=== PATIENT | female | born 1980 | race Caucasian/White ===

== ENCOUNTER 2019-03-08 06:57 | Observation (INO) | payer OTHER ==
[~2019-03-08] VITALS: Ht 172.7 cm; Wt 82.1 kg
[~2019-03-08 06:57] MED LIST: CRANBERRY300 MG PO; MULTI VITAMIN1 EACH PO
[2019-03-08 07:50] VITALS: BP 144/90
[2019-03-08 12:09] LABS: URINE BLOOD 2+ (Negative); URINE CLARITY CLOUDY; URINE COLOR YELLOW; URINE GLUCOSE-RANDOM* NEGATIVE (Negative); URINE KETONES 2+ (Negative); URINE LEUKOCYTES-REFLEX NEGATIVE (Negative); URINE NITRITE-REFLEX NEGATIVE (Negative); URINE PROTEIN (DIPSTICK) 2+ (Negative); URINE SPECIFIC GRAVITY >= 1.030 (1.005-1.035); URINE UROBILINOGEN 0.2 E.U./dl (0.2-1.0)
[2019-03-08 12:14] LABS: ICTOTEST (BILI CONFIRMATORY) Negative (Negative); URINE BILIRUBIN NEGATIVE (Negative)
[2019-03-08 12:16] LABS: CASTS None Seen /LPF (None Seen); SQUAMOUS 0-3 Few /LPF (0-3)
[2019-03-08 12:17] LABS: AMORPHOUS URATES Moderate /LPF (None Seen); URINE WBC-REFLEX 0-5 Rare /HPF (0-5)
[2019-03-08 15:20] VITALS: BP 128/78
--- NOTE | 2019-03-08 19:48 | NUR ---
PATIENT ADMITTED FROM OR, TOTAL ABDOMINAL HYSTERECTOMY, 3 LAP SITES, C/D/I WITH DERMABOUND IN PLACE. REPORT RECEIVED FROM MICHEAL/HEAVY [employer] MECHANIC. UPON ARRIVAL TO THE UNIT, PATIENT VOMITTED SMALL AMT. OF EMESIS. LAST DOSE OF ZOFRAN GIVEN AT 1230 IN PACU. PATIENT CONTINUES TO C/O NAUSEA, THIS RN NOTIFIED DR PERALTA, RECEIVED ONETIME ORDER FOR ZOFRAN 4 MG IV UNTIL NEXT PRN DOSE DUE. PATIENT WAS GIVEN ZIFRAN 4 MG IV AND HYDROCODONE 1 TABLET X 1 THIS SHIFT. NAUSEA IMROVED, PAIN PARTIAL RELIEF. PATIENT HAS RIGHT HAND IV, LR AT 125CC/HR STARTED AFTER ARRIVING ON THE UNIT. VSS. PANDA CATHETER IN PLACE WITH GOOD OUTPUT THIS SHIFT. CLEAR LIQUID DIET, TOLERATED OK AT THIS TIME. ROOM AIR, NO C/O SOB. AT BEDSIDE UPON ARRIVAL TO THE UNIT. ADMISSION COMPLETED. WILL CONTINUE TO MONITOR.
[2019-03-09 00:41] VITALS: BP 118/73
[2019-03-09 03:31] VITALS: BP 122/64
--- NOTE | 2019-03-09 04:56 | NUR ---
Pt. rested quietly at intervals during the night when checked on during frequent rounds. She has been given oral pain med (see emar) with some relief of pain noted. Pt. dangled at the side of the bed and did well. No vaginal bleeding. No nausea. Started passing a little flatus this am. Dermabond lapsites times three to abdomen are dry and intact.
[2019-03-09 06:03] LABS: HEMATOCRIT 36.3 % (37.0-47.0); HEMOGLOBIN 11.9 gm/dL (12.0-15.0); MCH 27.9 pg (26.0-34.0); MCHC 32.7 g/dL (28.0-37.0); MCV 85.3 fL (80.0-100.0); RBC 4.26 mil/uL (4.20-5.00); RDW 13.8 % (10.5-14.5); WBC 15.2 thou/uL (4.0-11.0)
[2019-03-09 06:23] LABS: CALCIUM 8.9 mg/dL (8.5-10.1); CREATININE 0.7 mg/dL (0.6-1.0); POTASSIUM 3.7 mmol/L (3.5-5.1)
[2019-03-09 07:18] VITALS: BP 112/69
--- NOTE | 2019-03-09 11:44 | NUR ---
Nutrition: Pt seen per consult. Admitted w/ pelvic pain, menorrhagia, now s/p total hysterectomy on 03/08. Met w/ pt and spouse. Pt asked re: best foods to eat. Encouraged initially to choose best tolerated/what sits well in stomach, i.e. focusing on dry, bland, starchy foods (examples provided). Minimal-no nausea today; pt reports feeling much better. Ultimately, discussed need to focus on slightly higher protein - ideally at least 1 source per meal with balance of food groups from other sources like fruits, vegetables, meats, dairy. Protein examples commonly found at each meal reviewed. Pt had no further nutrition questions/needs. Low nutrition risk.
--- NOTE | 2019-03-09 16:20 | O ---
[facility] [place] [address] OPERATIVE REPORT Name: BROCK DINH Liberty Room #: 456-P [facility] MChuck#: [id number] Admission: 03/08/19 ������������������ Attend Phys: Christina Figueroa DO Discharge: ������������������ Date of : 78 Report #: [id number] THIS REPORT FOR: //name// CC: Christina Tran DATE OF SERVICE: 03/08/2019 PREOPERATIVE DIAGNOSES: 1. Pelvic pain. 2. Menorrhagia. POSTOPERATIVE DIAGNOSES: 1. Pelvic pain. 2. Menorrhagia. OPERATIVE PROCEDURE: Total laparoscopic hysterectomy with bilateral salpingo-oophorectomy. SURGEON: Christina Figueroa DO ANESTHESIA: General. INTRAVENOUS FLUIDS: 1100 mL. ESTIMATED BLOOD LOSS: 25 mL. URINE OUTPUT: 20 mL. COMPLICATIONS: None. PATHOLOGY: Uterus with cervix, bilateral fallopian tubes and ovaries. DESCRIPTION OF PROCEDURE: The patient was taken to the operating room where general anesthesia was administered and found to be adequate. She was then prepped and draped in the normal sterile fashion in dorsal lithotomy position. A weighted speculum was placed in the patient's vagina. The anterior lip of the cervix was identified and grasped with a single tooth tenaculum. The cervix was then gently dilated. The uterus was then gently sounded to approximately 8 cm. The MyLuvsare uterine manipulator was then inserted through the cervix, gently advanced into the uterus, and the balloon was inflated. The single tooth tenaculum was removed from the patient's cervix and the VCare cup was placed over the cervix and fashioned in place. All instrumentation was then removed from the patient's vagina. Sterile gloves were changed and attention was then turned to the patient's abdomen. A 5 mm infraumbilical incision was made with a scalpel. A 5 mm trocar was inserted through this incision under direct [address] [address] OPERATIVE REPORT Name: FABRIZIOBROCK Room #: 456-P [facility] Blair Barrientos#: [id number] Admission: 03/08/19 ������������������ Attend Phys: Christina Figueroa DO Discharge: ������������������ Date of : 78 Report #: [id number] visualization of the laparoscope. No insertional trauma was identified. Pneumoperitoneum was allowed to accumulate and the patient was then placed in Trendelenburg position. A second incision was made in the patient's left lower quadrant. Using a scalpel, a 10 mm incision was made and a 10 mm trocar was inserted through this incision under direct visualization of the laparoscope. No insertional trauma was identified. A 5 mm incision was then made in the patient's right lower quadrant with a scalpel. A 5 mm trocar was placed through this incision under direct visualization of laparoscope. Again, no insertional trauma was identified. Using an atraumatic grasper, the patient's left fallopian tube was grasped, and the fallopian tube and ovary were retracted medially. The infundibulopelvic ligament was then transected using the Sonicision device followed by the patient's broad ligament. The vesicouterine peritoneum was then identified and transected using the Sonicision device. Attention was then turned to the patient's right pelvis where again the fallopian tube and ovary were retracted medially. The right infundibulopelvic ligament followed by the round ligament and the broad ligament were transected using the Sonicision device. The vesicouterine peritoneum was identified and transected across using the Sonicision device. Laparoscopic Kittners were then used to bluntly dissect the vesicouterine peritoneum off the anterior aspect of the uterus and cervix. Once this was performed, bilateral uterine arteries as well as cardinal ligament complexes were then transected using the Sonicision device and the uterus was noted to carloz appropriately. The Sonicision was then used to perform a colpotomy around the VCare cup circumferentially. Once the entire cervix was transected from the upper vagina at the cervicovaginal junction, the uterus, fallopian tubes, and ovaries were then delivered vaginally. The specimen was left in the vagina to maintain pneumoperitoneum. Sterile gloves were again changed and the anterior and posterior vaginal mucosa along with the pelvic peritoneum were reapproximated using a series of interrupted stitches with the EndoStitch. Excellent hemostasis was noted in the vaginal cuff. The pelvis was copiously irrigated. All irrigant was removed via suction. The pneumoperitoneum was allowed to escape slightly. There was a small amount of oozing noted from the posterior aspect of the vaginal cuff to the right and Anai was placed over this as well as the entire vaginal cuff and pedicles. The 10 mm trocar was removed from the patient's abdomen and a Leon-Ervin was placed at the site of the trocar using 2-0 Vicryl. The fascia was then reapproximated. Excellent hemostasis was noted at this fascial site. All instruments were removed from the patient's abdomen. The pneumoperitoneum was allowed to completely escape and all trocars were removed. All incisions were closed with interrupted stitches using 4-0 Monocryl and 4-0 Vicryl. Excellent hemostasis was noted at all sites. The specimen was removed from the patient's vagina. Sponge, lap and needle counts were reported as [address] [address] OPERATIVE REPORT Name: BROCK DINH Room #: 456-P [facility] KamranRMark#: [id number] Admission: 03/08/19 ������������������ Attend Phys: Christina Figueroa DO Discharge: ������������������ Date of : 78 Report #: [id number] correct. The patient tolerated the procedure well and was taken to the recovery room in stable condition. ��������������������������������������������� <ELECTRONICALLY SIGNED> ���������������������������������������� By: Christina Figueroa DO ��������������������������������������������� 03/09/19 1620 1316 [id number] Christina Figueroa DO /nt
[2019-03-09 16:23] VITALS: BP 111/69
[2019-03-09] MEDS ORDERED: IBUPROFEN 400400 M2 PO (16:24)
[2019-03-09] MEDS ORDERED: HYDROCODON-ACE1 EAC7 PO (16:24)
--- NOTE | 2019-03-09 17:54 | NUR ---
ASSESSMENT CHARTED - MEDS PER TAJ - [place] DIET AND FLUIDS. GIVEN LORTAB AND MOTRIN FOR CO'S OF PAIN WITH MOD EFFECT. PANDA CATH REMOVED THIS AM - HAS VOIDED MULTIPLE TIMES SINCE REMOVAL. PT AMBULATING IN THE HALLS - STEADY ON FEET. PT TO GO HOME THIS EVEINING AWAITING DOCTORS RETURN TO DISCHARGE. NO CO'S AT THE PRESENT TIME.
[2019-03-09 18:12] VITALS: BP 111/69
--- NOTE | 2019-03-09 18:39 | NUR ---
INSRTUCTION RE HOME MEDS/ CARE AND FOLLOW UP GIVEN TO PATIENT - STATED UNDERSTANDING OF INSTRUCTION GIVEN. NO CO'S AT TIME OF D/C. LEFT UNIT VIA WHEELCHAIR - HOME VIA PVT VEHICLE ACCOMPANIED BY .
--- NOTE | 2019-03-10 16:06 | PATH ---
[facility] [address] [place] [address] PATHOLOGY RPT PROCEDURE Name: BROCK FOX Liberty Room #: 456-P [facility] Blair Barrientos#: [id number] ������������������ Admission: 03/08/19 ������������������ Date of : 78 Discharge: 03/09/19 Report #: [id number] Path Case #: [id number] [facility] Accession Number: [id number] . 01 Material submitted: . uterus - UTERUS, OVARIES, AND TUBES . 01 Clinical history: . Pelvic pain, excessive bleeding menopausal period, history of UTI . 02 Diagnosis: Uterus, ovaries and tubes, hysterectomy with bilateral salpingo-oophorectomy: - Proliferative endometrium; negative for hyperplasia, atypia or malignancy. - Multiple leiomyomata ranging from 0.5 to 1.7 cm located intramurally and subserosally. - Mild chronic cervicitis associated with squamous metaplastic changes and focal ulceration; negative for dysplasia or malignancy. - Bilateral ovaries showing physiologic changes along with multiple follicular cysts as well as focal endosalpingiosis. - Right ovary showing hemorrhagic cyst. - Bilateral fallopian tubes showing congestion. (IUV:irvin; 03/10/2019) QMS 03/10/2019 1532 Local . 02 Electronically signed: . Arianna Loera MD, Pathologist NPI- [id number] . 01 Gross description: . The specimen is received in formalin labeled "Brock Fox, uterus, ovaries, tubes". Received is a 90 g, 8.5 x 5.2 x 4.4 cm uterus with attached cervix and attached adnexa, weighing 14 and 19 g, left and right, respectively. The uterine serosa is pink-verduzco and smooth in appearance with a serosal nodule at the fundal aspect measuring 0.9 cm. The 1.2 cm cervical os is surrounded by light verduzco, granular to pink-verduzco, smooth ectocervical mucosa. The uterus is oriented using the peritoneal reflection and the anterior paracervical margin is inked black. The uterus is opened laterally to reveal a pale verduzco, corrugated endocervical canal measuring 2.2 cm in length. The endometrial cavity is triangular measuring 5.1 cm in length by 2.8 cm in width. The endometrium is pale verduzco, glistening to slightly hemorrhagic in appearance and measures 0.1 cm in thickness. Serial sectioning reveals a verduzco-pink, trabeculated myometrium measuring up to 2.3 cm in thickness displaying several intramural fibroids ranging in size from 0.5 to 1.7 cm. . [facility] [address] [place] [address] PATHOLOGY RPT PROCEDURE Name: BROCK FOX Room #: 456-P BEN Barrientos#: [id number] ������������������ Admission: 03/08/19 ������������������ Date of : 78 Discharge: 03/09/19 Report #: [id number] Path Case #: [id number] The left adnexa consists of a fimbriated fallopian tube measuring 8.7 cm in length by up to 1.1 cm in diameter attached to a 3.1 x 2.3 x 1.8 cm ovary. The fallopian tube displays an attached paratubal cyst measuring 1.2 cm filled with clear fluid. Sectioning through the fallopian tube reveals a patent lumen and the fallopian tube appears otherwise grossly unremarkable. Sectioning through the ovary reveals multiple cystic structures ranging in size from 0.2 to 0.8 cm filled with blood-tinged fluid. The remaining cut surfaces display pale verduzco, normal ovarian stroma. . The right adnexa consists of a fimbriated fallopian tube measuring 9.2 cm in length by up to 1.0 cm in diameter attached to a 3.7 x 3.0 x 2.7 cm ovary. Sectioning through the fallopian tube reveals a pinpoint to patent lumen and the fallopian tube appears grossly unremarkable. Sectioning through the ovary reveals several cystic structures ranging in size from 0.3 to 1.7 cm filled with blood-tinged fluid. The remaining cut surfaces display pale verduzco, normal ovarian stroma. The specimen is submitted representatively as follows: . A1 12:00 cervix A2 6:00 cervix A3 serosal nodule A4 anterior endomyometrium A5 posterior endomyometrium A6 intramural fibroids A7-A8 left adnexa A9-A10 right adnexa. (CAA; 03/09/2019) QA/QA 03/09/[address] [place] [address] . 02 Pathologist provided ICD-10: D25.9, N72, N83.01, N83.02, N94.89 . 02 CPT . 975101 Specimen Comment: A courtesy copy of this report has been sent to Specimen Comment: [phone], . Specimen Comment: Report sent to / DR CORDOBA Performed at: [address] [place], [place] [address] [address], [place], [place] [id number] MD Norm Padilla MD Phone: [phone] Performed at: [address] [id number] MD Arianna Loera MD Phone: [phone]
== END 2019-03-09 18:36 | disposition home or self-care (01) ==
LOC: OR 06:57 → TBA 11:51 → OR 12:33 → 4W 15:18 → OR 15:19 → 4W 15:19
PROVIDERS: ADMIT Obstetrics & Gynecology
DX: N92.0 Excessive and frequent menstruation with regular cycle (principal); D25.9 Leiomyoma of uterus, unspecified; N72 Inflammatory disease of cervix uteri; N83.201 Unspecified ovarian cyst, right side; Z79.899 Other long term (current) drug therapy
CPT/HCPCS: 10047; 50010; 50101; 50249; 50386; 50455; 50555; 50558; 50900; 50962; 51489; 51687; 52265; 52287; 53307; 54022; 54118; 55326; 56462; 56525; 56531; 56719; 62110; 62900; 70005

== ENCOUNTER 2019-03-31 13:43 | Day surgery (SDC) | payer OTHER ==
[~2019-03-31] VITALS: Ht 175.3 cm; Wt 83.5 kg
[~2019-03-31 13:43] MED LIST changes: +HYDROCODON-ACE1 EAC7 PO; +IBUPROFEN 400400 M2 PO
[2019-03-31 15:59] VITALS: BP 127/79
--- NOTE | 2019-04-07 13:32 | O ---
[facility] [place] [place] [address] OPERATIVE REPORT Name: BROCK DINH Room #: DEP [facility]..#: [id number] Admission: 03/31/19 Attend Phys: Christina Figueroa DO Discharge: 03/31/19 Date of : 78 Report #: [id number] THIS REPORT FOR: //name// CC: Christina Tran DATE OF SERVICE: 03/31/2019 PREOPERATIVE DIAGNOSIS: Vaginal cuff dehiscence. POSTOPERATIVE DIAGNOSIS: Vaginal cuff dehiscence. OPERATIVE PROCEDURE: Repair and revision of vaginal cuff. SURGEON: Christian Figueroa DO ANESTHESIA: MAC. INTRAVENOUS FLUIDS: 400 mL. URINE OUTPUT: Zero mL. ESTIMATED BLOOD LOSS: 25 mL. COMPLICATIONS: None. PATHOLOGY: None. DESCRIPTION OF PROCEDURE: The patient was taken to the operating room where MAC anesthesia was found to be adequate. She was then prepped and draped in the normal sterile fashion in dorsal lithotomy position. A weighted speculum was placed in the patient's vagina and the vaginal cuff was thoroughly examined. There was noted to be a 1.5 cm incomplete dehiscence at the vaginal cuff and located centrally. A jiabnq-wy-dzdtm suture was placed at the central portion of the vaginal cuff, reapproximating the anterior and posterior aspects. A second suture of the anterior and posterior vaginal cuff was reinforced from the rightward aspect in a running fashion leftward. There was a small amount of brisk bleeding noted again at the right central portion of the vaginal cuff and an interrupted stitch was placed and the vaginal cuff was then noted to be hemostatic. The patient's vagina was then packed with Estrace cream, gauze and the weighted speculum was then removed from the patient's vagina. The patient tolerated the procedure well. Sponge, lap, instrument and needle counts were [facility] [address] [address] OPERATIVE REPORT Name: BROCK DINH [id number] Admission: 03/31/19 Attend Phys: Christina Figueroa DO Discharge: 03/31/19 Date of : 78 Report #: [id number] reported to be correct and the patient was then taken to the recovery room in stable condition. <ELECTRONICALLY SIGNED> By: Christina Figueroa DO 04/07/19 1332 1845 [id number] Christina Figueroa DO /nt
== END 2019-03-31 16:25 | disposition home or self-care (01) ==
LOC: OR 13:43 → TBA 13:50 → OR 16:25
DX: T81.31XA Disruption of external operation (surgical) wound, not elsewhere classified, initial encounter (principal); Z90.710 Acquired absence of both cervix and uterus; Z98.890 Other specified postprocedural states; Z79.899 Other long term (current) drug therapy; Z88.8 Allergy status to other drugs, medicaments and biological substances; Z79.891 Long term (current) use of opiate analgesic; Y83.8 Other surgical procedures as the cause of abnormal reaction of the patient, or of later complication, without mention of misadventure at the time of the procedure
CPT/HCPCS: 50010; 50101; 50386; 56524; 57092; 62110; 62850; 70005